=== PATIENT | male | born 1985 | race Caucasian/White ===

== ENCOUNTER 2020-06-30 16:23 | Emergency (ER) | payer OTHER, SELFPAY ==
[2020-06-30 16:31] VITALS: BP 159/87; PULSE 95; RESP 18; TEMP 36.2; O2SAT 96
[2020-06-30 16:57] LABS: Basophils Absolute Auto 0.1 K/mm3 (0.0-0.1); Basophils Percent Auto 0.9 % (0.2-1.2); Eosinophils Absolute Auto 0.7 K/mm3 (0-0.3); Hemoglobin 16.3 g/dL (14.0-18.0); Immature Granulocyte Absolute 0.03 K/mm3 (0.00-0.031); Immature Granulocyte Percent A 0.3 % (0-0.5); Lymphocytes Absolute Auto 3.59 K/mm3 (0.9-3.2); Lymphocytes Percent Auto 31.9 % (18.3-44.2); Mean Corpuscular HGB Conc 34.7 g/dl (32-36); Mean Corpuscular Hemoglobin 31.2 pg (26-34); Mean Corpuscular Volume 89.9 fl (80-100); Mean Platelet Volume 9.7 fl (7.4-10.4); Monocytes Absolute Auto 0.7 K/mm3 (0.1-0.6); Monocytes Percent Auto 6.4 % (2.6-8.5); Neutrophils Absolute Auto 6.1 K/mm3 (1.3-6.7); Neutrophils Percent Auto 54.5 % (45.5-73.1); Platelet Count Result 360 k/mm3 (150-375); Red Blood Count 5.23 M/mm3 (4.6-6.20); Red Cell Distribution Width 13.2 % (11.5-14.5); White Blood Count 11.3 K/mm3 (4.5-10.0)
--- NOTE | 2020-06-30 17:01 | PC.NURSE ---
Pt to ED with complaints of anxiety/depression. Pt reports he wakes up every morning with thoughts of wanting to disappear . Pt denies thoughts or plan of actually wanting to harm himself. Pt states he has had suicidal thoughts his entire life. Pt recently moved to the area and was not established with PCP or psychiatrist. Pt states he was cutting his doses of Duloxetine in half to make them last longer. Pt is not currently established with counselor or psychiatrist. Pt calm and cooperative. Pt placed in paper scrubs. All belongings secured. Pt placed on 1:1 observation.
[2020-06-30 17:10] LABS: Ethanol < 10 mg/dL (<10)
[2020-06-30 17:16] LABS: Alanine Aminotransferase 24 U/L (4-50); Albumin Level 4.5 g/dL (3.5-5.1); Alkaline Phosphatase 95 U/L (38-126); Anion Gap 11 mmol/L (8-16); Aspartate Amino Transferase 26 U/L (17-59); Bilirubin,Total 0.3 mg/dL (0.2-1.3); Blood Urea Nitrogen 11 mg/dL (9-20); Calcium 8.8 mg/dL (8.4-10.2); Carbon Dioxide 25 mmol/L (22-30); Chloride 105 mmol/L (98-107); Estimated CRCL calculation 151 ml/min; Estimated Glomerular Filt Rate > 60; Glucose 93 mg/dL (75-110); Sodium 141 mmol/L (137-145)
--- NOTE | 2020-06-30 18:03 | ED.PSYCH ---
HPI - Psych General Chief Complaint: Medical Clearance Stated Complaint: SI/HI Time Seen by Provider: 06/30/20 16:59 Source: patient Mode of arrival: ambulatory Limitations: no limitations History of Present Illness HPI Narrative: This patient is a 34 year old male with history of major depression who presents from his primary care physician's office for a psych evaluation. He states he recently moved from [place], [place] and he is running out of his duloxetine. He has been taking half dose of his medication in order to stretch his prescriptions. He states at his new PCP office he scored high on there depression screening so they sent him to ER for evaluation. He reports chronic depression and chronic thoughts of suicide. He states he has never attempted suicide and he has no plan to ever attempt. HE states he would never commit suicide. He just wanted to get his duloxetine prescription filled. He lives with his mother and he has good support. Related Data Home Medications Medication Instructions Recorded Confirmed duloxetine PO 06/30/20 lisinopril PO 06/30/20 Review of Systems Review of Systems: All systems reviewed & are unremarkable except as noted in HPI and below Constitutional: Constitutional: Denies chills and Denies fever(s) ENT: Denies dizziness Cardiovascular: Cardiovascular: Denies chest pain Respiratory: Respiratory: Denies cough and Denies dyspnea PMFSH Past Medical History Medical History (Updated 06/30/20 @ 18:43 by Deanna Bingham MD) Hypertension Major depression Social History Social History (Updated 06/30/20 @ 18:07 by Deanna Bingham MD) Tobacco type: e-cigarettes/vaping Alcohol intake: never Substance use type: marijuana Exam Narrative: Exam Narrative: GENERAL: Well-appearing, well-nourished, and in no acute distress. HEAD: Normocephalic, atraumatic EYES: PERRLA and EOMI, conjunctiva clear without discharge EARS: TM's clear bilaterally without erythema or dullness THROAT:Mucous membranes moist, Oropharynx normal without erythema, exudate, peritonsillar swelling or fluctuance NECK: Supple, without lymphadenopathy or mass RESPIRATORY: No respiratory distress, Airway patent, Respirations non-labored, Clear to auscultation without rales, rhonchi or wheeze HEART: Regular rate and rhythm. No murmur heard. Normal peripheral pulses. ABDOMEN: Soft, nontender, nondistended, normal active bowel sounds. No masses. No rebound or guarding, No organomegaly. EXTREMITIES: No edema, normal strength with full range of motion. SKIN: Warm, dry, normal color without rash NEURO: Alert and oriented x3. CN 2-12 grossly intact. No focal deficits. PSYCH: Normal mood and affect. Psych: Appearance: grossly normal Mental Status: mental status grossly normal Affect: normal affect Attitude: cooperative Course Reevaluation(s) Reevaluation #1: Patient's mother is at bedside. I have discussed evaluation in ED. She states she does not feel patient needs to be placed. I agrees patient is low risk They are okay with plan for discharge. Date: 06/30/20 Time: 18:41 Consultations Consultation #1: I discussed with Dr. Penaloza that patient is low risk on our columbia score. He agrees to see patient in clinic tomorrow in order to get his medications refilled and he has referred to psychiatry Date: 06/30/20 Time: 18:40 Vital Signs Vital signs: Vital Signs Temperature 97.1 F L 06/30/20 16:31 Pulse Rate 95 06/30/20 16:31 Respiratory Rate 18 06/30/20 16:31 Blood Pressure 159/87 H 06/30/20 16:31 Pulse Oximetry 96 06/30/20 16:31 Temperature 97.1 F L 06/30/20 16:31 Pulse Rate 95 06/30/20 16:31 Respiratory Rate 18 06/30/20 16:31 Blood Pressure 159/87 H 06/30/20 16:31 Pulse Oximetry 96 06/30/20 16:31 MDM - Psych Lab Data Attestation: I reviewed the patient's lab results. Result diagrams: 06/30/20 16:47 06/30/20 16:47 Labs: Lab
[2020-06-30 18:19] LABS: Amphetamine Screen Urine Negative (Negative); Barbiturate Screen Urine Negative (Negative); Benzodiazepines Screen Urine Negative (Negative); Cannabinoid Screen Urine Positive (Negative); Cocaine Screen Urine Negative (Negative); Methadone Screen Urine Negative (Negative); Opiate Screen Urine Negative (Negative); Phencyclidine Screen Urine Negative (Negative)
[2020-06-30 18:30] LABS: Potassium 4.1 mmol/L (3.4-5.0)
--- NOTE | 2020-06-30 18:30 | PC.NURSE ---
Dinner tray ordered for pt. Pt resting on stretcher with family at bedside. Pt on 1:1 observation.
[2020-06-30 18:32] LABS: Add Urine Microscopic? NO; Appearance Urine Clear (Clear); Bilirubin Urine Negative (Negative); Blood Urine Negative (Negative); Color Urine Yellow (Yellow); Glucose Urine UA Negative (Negative); Ketones Urine Negative (Negative); Leukocyte Esterase Ur Negative LEU/UL (Negative); Nitrate Urine Negative (Negative); Protein Urine Negative (Negative); Specific Grav Ur 1.021 (1.001-1.035); Urobilinogen Urine Negative mg/dL (<2.0)
[2020-06-30 19:11] VITALS: BP 145/97; PULSE 87; RESP 18; O2SAT 95
== END 2020-06-30 19:15 | disposition home or self-care (01) ==
PROVIDERS: Emergency Medicine; Emergency Provider General Practice; PCP Emergency Medicine
DX: F32.9 Major depressive disorder, single episode, unspecified (principal); I10 Essential (primary) hypertension; F17.290 Nicotine dependence, other tobacco product, uncomplicated
CPT/HCPCS: 36415; 80053; 80307; 81003; 84443; 85025; 99283